=== PATIENT | male | born 1970 | race Caucasian/White ===

== ENCOUNTER → 2020-12-16 | Outpatient (CLI) | payer BC ==
--- NOTE | 2020-12-16 15:55 | XR ---
EXAMINATION TYPE: XR Hip Bilateral and AP pelvis DATE OF EXAM: 12/16/2020 COMPARISON: NONE HISTORY: Pain TECHNIQUE: A single AP view of the pelvis is obtained. Two views of the bilateral hip are obtained. FINDINGS: There is no acute fracture/dislocation evident in the pelvis. Mild sclerosis and narrowing of the left SI joint.. Mild concentric narrowing the hip joints bilaterally. Abnormal morphology of the right femoral head c an be associated with femoral acetabular impingement. Mild osteitis pubis condensans noted. Vascular calcifications in the pelvis. Calcific density adjacent to the lateral margin of the left femur can b e associated with chronic acetabular labral tear. IMPRESSION: 1. [id number] bilateral arthropathy. 2. Correlate for femoral acetabular impingement. 3. 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 4. Left SI joint arthropathy.
== END | disposition home or self-care (01) ==
LOC: RADXRMAIN 14:25
PROVIDERS: ATTEND Nurse Practitioner
DX: M12.9 Arthropathy, unspecified (principal)
CPT/HCPCS: 73521